=== PATIENT | male | born 1995 ===

== ENCOUNTER 2018-11-18 14:52 | Outpatient (REF) | payer BC, SELFPAY ==
[2018-11-18 16:21] LABS: Calculated LDL 118 mg/dL; Cholesterol 197 mg/dL (50-200); Glucose 91 mg/dL (70-100); HDL Cholesterol 38 mg/dL (40-60); Triglyceride 209 mg/dL (30-150)
== END 2018-11-18 15:12 ==
LOC: NCHCN 14:52
PROVIDERS: PCP Family Medicine; Visit Provider Family Medicine
DX: Z13.1 Encounter for screening for diabetes mellitus (principal); Z13.220 Encounter for screening for lipoid disorders
CPT/HCPCS: 80061; 82947; 83721

== ENCOUNTER 2020-02-23 21:01 | Outpatient (REF) | payer BC, SELFPAY ==
[2020-02-27 21:54] LABS: SARS-CoV-2 RNA Undetected (Undetected); SARS-CoV-2 Specimen Source Nasal
== END 2020-02-23 21:21 ==
LOC: NCHCN 21:01
PROVIDERS: PCP Family Medicine; Visit Provider Nurse Practitioner Family
DX: R09.81 Nasal congestion (principal)
CPT/HCPCS: U0003